=== PATIENT | female | born 1985 | race Hispanic/Latino ===

== ENCOUNTER 2016-08-22 13:11 | Emergency (ER) | payer SELFPAY ==
[2016-08-22 13:39] VITALS: BMI 27.4
[2016-08-22] MEDS ORDERED: Lactated Ringer's 1,000 ML IV ONE (14:28)
[2016-08-22 14:51] LABS: BASO % 0.3 % (0.0-2.0); EOS # 0.2 K/uL (0.0-0.7); EOS % 1.5 % (0.0-4.0); LYMPH # 2.7 K/uL (1.0-4.3); MEAN CELL VOLUME 91.1 fL (81.0-99.0); MEAN CORPUSCULAR HEMOGLOBIN 30.1 pg (27.0-31.0); MEAN CORPUSCULAR HGB CONC 33.1 g/dL (33.0-37.0); MEAN PLATELET VOLUME 8.6 fL (7.2-11.7); MONO # 0.7 K/uL (0.0-0.8); MONO % 5.5 % (0.0-10.0); RED CELL DISTRIBUTION WIDTH 13.9 % (11.5-14.5); WHITE BLOOD COUNT 11.9 K/uL (4.8-10.8)
--- NOTE | 2016-08-22 14:51 | US ---
PROCEDURE: Obstetrical ultrasound, limited HISTORY: no care; ?26wks; c/o dizzy COMPARISON: None available TECHNIQUE: Transabdominal FINDINGS: The examination demonstrates a single live intrauterine gestation in breech presentation. The heart rate is 122 beats per minute. A posterior placenta is identified. There is no evidence of placenta previa. A grossly normal quantity of amniotic fluid is visualized. The cervix is closed and measures 4.9 cm in length. biometry yields a gestational age of 26 weeks 2 days. The ARUN by ultrasound is 11/26/2016. Limited review of anatomy demonstrates fluid distending the stomach and urinary bladder. A three-vessel umbilical cord is identified. The anterior abdominal wall is intact. A 4 chamber heart is demonstrated. IMPRESSION: Single live intrauterine gestation of approximately 26 weeks 2 days gestational age. Breech presentation. No evidence placenta previa. Grossly normal amniotic fluid volume. Limited review of anatomy. Cervix long and closed. .
[2016-08-22 14:59] LABS: RBC URINE < 1 /hpf (0-3); URINE BACTERIA OCC (<OCC); URINE BILIRUBIN NEGATIVE (NEGATIVE); URINE BLOOD NEGATIVE (NEGATIVE); URINE COLOR Straw (YELLOW); URINE GLUCOSE (UA) NORMAL (Normal); URINE KETONE NEGATIVE (NEGATIVE); URINE LEUKOCYTE ESTERASE NEG Leu/uL (Negative); URINE PROTEIN NEGATIVE (NEGATIVE); URINE UROBILINOGEN NORMAL mg/dL (0.2-1.0); WBC URINE 2 /hpf (0-5)
[2016-08-22 15:12] LABS: CHLORIDE 104 mmol/L (98-107); POTASSIUM 3.4 mmol/L (3.6-5.2); SODIUM 136 mmol/L (132-148)
[2016-08-22 15:14] LABS: BILIRUBIN,TOTAL 0.3 mg/dL (0.2-1.3); GFR AFRICAN-AMERICAN > 60
[2016-08-22 15:15] LABS: ALKALINE PHOSPHATASE 99 U/L (38-126); ALT/SGPT 22 U/L (9-52); AST/SGOT 16 U/L (14-36); BLOOD UREA NITROGEN 6 mg/dL (7-17); CALCIUM 8.4 mg/dl (8.6-10.4); CARBON DIOXIDE 21 mmol/L (22-30); GLUCOSE,RANDOM 72 mg/dL (65-105); TOTAL PROTEIN 6.6 g/dL (6.3-8.3)
[2016-08-22 15:28] LABS: ALB/GLOB RATIO 1.1 (1.0-2.1)
[2016-08-22 15:45] LABS: THYROID STIMULATING HORMONE 1.07 mIU/L (0.46-4.68)
[2016-08-23 02:10] LABS: HEMATOCRIT 30.7 % (35.0-45.0); HEMOGLOBIN 10.1 g/dL (11.7-15.5); RDW 14.3 % (11.0-15.0)
[2016-08-25 12:51] LABS: HEMOGLOBIN F <1.0 Percent (<2.0)
== END 2016-08-22 15:41 | disposition home or self-care (01) ==
LOC: C.EROB 13:11
DX: O26.892 Other specified pregnancy related conditions, second trimester (principal); R42 Dizziness and giddiness; Z3A.26 26 weeks gestation of pregnancy
CPT/HCPCS: 76815; 80053; 80074; 81001; 82948; 83021; 83036; 83690; 84439; 84443; 85014; 85018; 85025; 85041; 86592; 86703; 86762; 86850; 86900; 87491; 87591; 99283; G0480; J7120